=== PATIENT | female | born 1965 | race Caucasian/White ===

== ENCOUNTER 2022-04-11 11:04 | Emergency (ER) | payer OTHER, SELFPAY ==
[2022-04-11] MEDS ORDERED: Nitroglycerin 0.4 MG TAB (25 Tab Bottle) ONE (11:45)
[2022-04-11] MEDS ORDERED: hydrOXYzine 25 MG TAB ONE (11:45)
[2022-04-11 12:08] LABS: #Lymphocytes 0.9 thou/uL (1.20-3.40); #Monocytes 0.4 thou/uL (0.11-0.59); #Neutrophils 3.7 thou/uL (1.40-6.50); %Basophils 0.2 % (0.0-1.0); %Eosinophils 0.2 % (0.0-10.0); %Lymphocytes 17.4 % (21.0-51.0); %Monocytes 7.7 % (0.0-10.0); %Neutrophils 74.4 % (42.0-75.0); Hemoglobin 14.7 g/dL (12.0-16.0); Mean Corpuscular Hemoglobin 29.3 pg (27.0-31.0); Mean Corpuscular Volume 88.6 fl (78.0-98.0); Mean Platelet Volume 10.1 fL (7.4-10.4); Platelet Count 137 10x3/uL (130-400); RBC Distribution Width 12.9 % (11.5-14.5); Red Blood Cell (RBC) Count 5.03 mill/uL (4.20-5.40); White Blood Cell (WBC) Count 4.9 10x3/uL (4.8-10.8)
[2022-04-11 12:12] LABS: Base Excess-Venous -0.2 mmol/L (-2.0 to 3.0); Bicarbonate (HCO3v) 19.4 mmol/L (22.0-28.0); CO2 Tension (PvCO2) 20.9 mmHg (42.0-51.0); vO2 Saturation-calc 96.8 % (60.0-85.0)
[2022-04-11 12:13] LABS: Chloride 107 mmol/L (98-107); Hemoglobin - Calc 14.8 g/dL (12.0-16.0); Potassium 3.2 mmol/L (3.5-5.1); Sodium 140 mmol/L (138-145); T. Carbon Dioxide 20.1 mmol/L (22.0-28.0)
[2022-04-11 12:14] LABS: Calcium, Ionized 1.02 mmol/L (1.15-1.33)
[2022-04-11 12:20] LABS: ALT (SGPT) 27 U/L (8-55); AST (SGOT) 26 U/L (5-34); Albumin 4.4 g/dL (3.5-5.0); Alkaline Phosphatase 53 U/L (40-110); Anion Gap 15 mmol/L (10-20); BUN (Urea Nitrogen) 10 mg/dL (9.8-20.1); Bilirubin, Total 0.7 mg/dL (0.2-1.2); Calc. Creatinine Clearance 0 mL/min (70-130); Carbon Dioxide 18 mmol/L (22-29); Chloride 107 mmol/L (98-107); Estimated GFR 92; Globulin 2.7 g/dL (2.4-3.5); Glucose 123 mg/dL (70-105); Potassium 3.1 mmol/L (3.5-5.1); Protein, Total 7.1 g/dL (6.0-8.3); Sodium 137 mmol/L (136-145)
[2022-04-11 12:41] LABS: Bilirubin Negative (Negative); Blood, Urine Negative (Negative); Clarity Clear (Clear); Glucose, Urine (Dipstick) Negative (Negative); Ketone, Urine 15 mg/dL (Negative); Leukocyte Negative (Negative); Nitrite Negative (Negative); Protein, Urine (Dipstick) Trace mg/dL (Neg-Trace); Specific Gravity, Urine 1.015 (1.005-1.030); Urobilinogen 0.2 mg/dL (Less than 2); pH, Urine 5.5 (5.0-9.0)
[2022-04-11 12:53] LABS: Cocaine Metabolite Screen Not Detected (NotDetected); Phencyclidine (PCP) Not Detected (NotDetected); THC/Cannabinoid Screen Detected (NotDetected)
[2022-04-11 12:54] LABS: Amphetamine Not Detected (NotDetected); Barbiturates Screen Not Detected (NotDetected); Benzodiazepine Screen Not Detected (NotDetected); Medtox Control Line Valid? VALID (VALID); Methadone Not Detected (NotDetected); Methamphetamine Detected (NotDetected); Opiate Screen Not Detected (NotDetected); Oxycodone Screen Not Detected (NotDetected); Tricyclic Screen Not Detected (NotDetected)
[2022-04-11] MEDS ORDERED: Lorazepam 0.5 MG TAB ONE (14:15)
[2022-04-11 14:16] LABS: SARS-CoV-2 NAA Rapid Test DETECTED (NotDetected)
[2022-04-11 15:41] LABS: Troponin I 0.019 ng/mL (< 0.028)
[2022-04-11] MEDS ORDERED: Aspirin Chewable 81 MG TAB ONE (15:52)
[2022-04-11] MEDS ORDERED: Lisinopril 10 MG TAB ONE (19:02)
== END 2022-04-11 19:38 | disposition short-term general hospital (02) ==
LOC: NAV ERS 11:04
DX: U07.1 COVID-19 (principal); F41.9 Anxiety disorder, unspecified; I10 Essential (primary) hypertension; R93.1 Abnormal findings on diagnostic imaging of heart and coronary circulation; J44.9 Chronic obstructive pulmonary disease, unspecified; F17.210 Nicotine dependence, cigarettes, uncomplicated
CPT/HCPCS: 36415; 71045; 80053; 80306; 81003; 82330; 82803; 83880; 84443; 84484; 85025; 85379; 93005